=== PATIENT | female | born 1980 | race Caucasian/White ===

== ENCOUNTER 2021-11-02 09:19 | Inpatient (IN) | payer MEDICAID ==
[~2021-11-02] VITALS: Ht 160 cm; Wt 67.1 kg
[2021-11-02 16:05] VITALS: BP 128/70
[2021-11-02] MEDS ORDERED: BISACODYL 10 MG RECTAL RECTAL SUPPOSITORY PR PRN (16:30)
[2021-11-02] MEDS ORDERED: LACTULOSE 20 GM/30 ML SOLUTION UDCUP PO PRN (16:30)
[2021-11-02 16:35] VITALS: BP 128/70
[2021-11-02] MEDS ORDERED: WARFARIN SODIUM 5 MG TABLET PO SCH (17:00)
[2021-11-02 20:00] VITALS: BP 116/70
[2021-11-02] MEDS: SENNA/DOCUSATE SODIUM 8.6-50 MG TABLET PO SCH (21:00)
[2021-11-02] MEDS: DOCUSATE SODIUM 100 MG CAPSULE PO SCH (21:00)
[2021-11-02] MEDS: SODIUM CHLORIDE 1 GM TABLET PO SCH (21:49)
[2021-11-02] MEDS: FAMOTIDINE 20 MG TABLET PO SCH (21:49)
[2021-11-02] MEDS: HYDROXYCHLOROQUINE SULFATE 200 MG TABLET PO SCH (21:50)
[2021-11-02] MEDS: ETHYL ALCOHOL 62% ANTISEPTIC NASAL SANITIZER 0.6 ML AMPUL NASAL SCH (22:02)
[2021-11-03 06:17] LABS: BASOPHILS % (AUTO) 0.4 % (0.0-2.0); EOSINOPHILS % (AUTO) 2.2 % (1.0-6.0); HEMATOCRIT 34.6 % (36-46); HEMOGLOBIN 11.7 g/dL (12.0-16.0); LYMPHOCYTES # (AUTO) 0.8 K/uL (1.0-4.8); LYMPHOCYTES % (AUTO) 17.1 % (22.0-44.0); MEAN CORPUSCULAR HEMOGLOBIN 29.1 pg (26.0-34.0); MEAN CORPUSCULAR HGB CONC 33.9 G/dL (31.0-37.0); MEAN CORPUSCULAR VOLUME 86 fL (80-100); MONOCYTES # (AUTO) 0.4 K/uL (0.1-1.0); MONOCYTES % (AUTO) 8.4 % (2.0-9.0); NEUTROPHILS # (AUTO) 3.5 K/uL (1.8-7.7); NEUTROPHILS % (AUTO) 71.9 % (40.0-70.0); PLATELET COUNT (AUTO) 252 K/uL (150-450); RED BLOOD CELL COUNT(AUTO) 4.03 MIL/uL (4.00-5.20); RED CELL DISTRIBUTION WIDTH 13.8 % (11.5-14.5)
[2021-11-03 06:29] LABS: INR 1.2 (0.9-1.1); PROTHROMBIN TIME 13.1 SEC (9.4-11.6)
[2021-11-03 07:08] LABS: ALANINE AMINOTRANSFERASE 435 U/L (12-78); ALBUMIN 2.7 g/dL (3.4-5.0); ALKALINE PHOSPHATASE 93 U/L (46-116); ANION GAP 4 mmol/L (8-16); ASPARTATE AMINOTRANSFERASE 61 U/L (15-37); BILIRUBIN,TOTAL 0.3 mg/dL (0.1-1.0); CALCIUM, TOTAL 9.2 mg/dL (8.8-10.5); CARBON DIOXIDE 29 mmol/L (22-29); CHLORIDE 104 mmol/L (98-107); CREATININE 0.52 mg/dL (0.60-1.30); GLUCOSE,RANDOM 110 mg/dL (70-110); POTASSIUM 4.7 mmol/L (3.5-5.1); SODIUM SERUM 137 mmol/L (136-145); TOTAL PROTEIN, SERUM 6.6 g/dL (6.4-8.2); UREA NITROGEN, BLOOD 12 mg/dL (7-18)
[2021-11-03 07:10] LABS: GLOMERULAR FILTR. RATE CALC > 60 mL/min (>60)
[2021-11-03 07:45] VITALS: BP 144/75
[2021-11-03] MEDS: ETHYL ALCOHOL 62% ANTISEPTIC NASAL SANITIZER 0.6 ML AMPUL NASAL SCH ×2 (07:56→20:19)
[2021-11-03] MEDS: FLUoxetine HCL 20 MG CAPSULE PO SCH (07:57)
[2021-11-03] MEDS: SENNA/DOCUSATE SODIUM 8.6-50 MG TABLET PO SCH (07:57)
[2021-11-03] MEDS: DOCUSATE SODIUM 100 MG CAPSULE PO SCH ×2 (07:59→20:17)
[2021-11-03] MEDS: FAMOTIDINE 20 MG TABLET PO SCH ×2 (07:59→20:19)
[2021-11-03] MEDS: HYDROXYCHLOROQUINE SULFATE 200 MG TABLET PO SCH ×2 (07:59→20:19)
[2021-11-03] MEDS: LISINOPRIL 20 MG TABLET PO SCH (07:59)
[2021-11-03] MEDS: SODIUM CHLORIDE 1 GM TABLET PO SCH ×2 (07:59→20:19)
[2021-11-03] MEDS: ENOXAPARIN SODIUM 80 MG/0.8 ML PF SYRINGE SQ SCH (11:59)
[2021-11-03 16:22] VITALS: BP 135/72
[2021-11-03] MEDS: WARFARIN SODIUM 5 MG TABLET PO SCH (18:22)
[2021-11-03] MEDS: SENNA 187 MG TABLET PO SCH (20:17)
[2021-11-03 21:03] VITALS: BP 123/75
[2021-11-04] MEDS: ACETAMINOPHEN 325 MG TABLET PO PRN (03:47)
[2021-11-04 07:15] LABS: INR 1.2 (0.9-1.1); PROTHROMBIN TIME 12.7 SEC (9.4-11.6)
[2021-11-04 07:19] LABS: CHOL/HDL RATIO 3.4 (3.9-5.7)
[2021-11-04 07:28] LABS: HEMOGLOBIN A1C 6.2 % (3.8-5.6)
[2021-11-04 08:30] VITALS: BP 126/74
[2021-11-04] MEDS: FAMOTIDINE 20 MG TABLET PO SCH ×2 (08:43→20:17)
[2021-11-04] MEDS: HYDROXYCHLOROQUINE SULFATE 200 MG TABLET PO SCH ×2 (08:43→20:17)
[2021-11-04] MEDS: FLUoxetine HCL 20 MG CAPSULE PO SCH (08:43)
[2021-11-04] MEDS: ETHYL ALCOHOL 62% ANTISEPTIC NASAL SANITIZER 0.6 ML AMPUL NASAL SCH ×2 (08:43→20:18)
[2021-11-04] MEDS: SODIUM CHLORIDE 1 GM TABLET PO SCH ×2 (08:43→20:17)
[2021-11-04] MEDS: LISINOPRIL 20 MG TABLET PO SCH (08:43)
[2021-11-04] MEDS: DOCUSATE SODIUM 100 MG CAPSULE PO SCH ×2 (08:44→20:18)
[2021-11-04] MEDS: ENOXAPARIN SODIUM 80 MG/0.8 ML PF SYRINGE SQ SCH (08:44)
[2021-11-04] MEDS: WARFARIN SODIUM 5 MG TABLET PO SCH (17:23)
[2021-11-04] MEDS: SENNA 187 MG TABLET PO SCH (20:18)
[2021-11-04 20:20] VITALS: BP 112/59
[2021-11-05 07:30] VITALS: BP 126/64
[2021-11-05] MEDS: ETHYL ALCOHOL 62% ANTISEPTIC NASAL SANITIZER 0.6 ML AMPUL NASAL SCH ×2 (08:03→20:35)
[2021-11-05] MEDS: SODIUM CHLORIDE 1 GM TABLET PO SCH ×2 (08:04→20:35)
[2021-11-05] MEDS: FAMOTIDINE 20 MG TABLET PO SCH ×2 (08:04→20:35)
[2021-11-05] MEDS: DOCUSATE SODIUM 100 MG CAPSULE PO SCH ×2 (08:04→20:35)
[2021-11-05] MEDS: FLUoxetine HCL 20 MG CAPSULE PO SCH (08:05)
[2021-11-05] MEDS: LISINOPRIL 20 MG TABLET PO SCH (08:05)
[2021-11-05] MEDS: HYDROXYCHLOROQUINE SULFATE 200 MG TABLET PO SCH ×2 (08:05→20:35)
[2021-11-05 08:23] LABS: INR 1.7 (0.9-1.1); PROTHROMBIN TIME 17.2 SEC (9.4-11.6)
[2021-11-05] MEDS: ENOXAPARIN SODIUM 80 MG/0.8 ML PF SYRINGE SQ SCH (09:28)
[2021-11-05] MEDS: WARFARIN SODIUM 5 MG TABLET PO SCH (16:36)
[2021-11-05 20:28] VITALS: BP 114/57
[2021-11-05] MEDS: SENNA 187 MG TABLET PO SCH (20:35)
[2021-11-06 07:35] LABS: BASOPHILS % (AUTO) 0.4 % (0.0-2.0); EOSINOPHILS % (AUTO) 2.9 % (1.0-6.0); HEMATOCRIT 29.4 % (36-46); HEMOGLOBIN 10.1 g/dL (12.0-16.0); LYMPHOCYTES # (AUTO) 0.9 K/uL (1.0-4.8); LYMPHOCYTES % (AUTO) 21.6 % (22.0-44.0); MEAN CORPUSCULAR HEMOGLOBIN 29.1 pg (26.0-34.0); MEAN CORPUSCULAR HGB CONC 34.3 G/dL (31.0-37.0); MEAN CORPUSCULAR VOLUME 85 fL (80-100); MONOCYTES # (AUTO) 0.4 K/uL (0.1-1.0); MONOCYTES % (AUTO) 10.1 % (2.0-9.0); NEUTROPHILS # (AUTO) 2.6 K/uL (1.8-7.7); PLATELET COUNT (AUTO) 277 K/uL (150-450); RED BLOOD CELL COUNT(AUTO) 3.46 MIL/uL (4.00-5.20); RED CELL DISTRIBUTION WIDTH 13.9 % (11.5-14.5)
[2021-11-06 07:53] LABS: ALANINE AMINOTRANSFERASE 149 U/L (12-78); ALBUMIN 2.7 g/dL (3.4-5.0); ALKALINE PHOSPHATASE 77 U/L (46-116); ANION GAP 7 mmol/L (8-16); ASPARTATE AMINOTRANSFERASE 24 U/L (15-37); BILIRUBIN,TOTAL 0.3 mg/dL (0.1-1.0); CALCIUM, TOTAL 8.9 mg/dL (8.8-10.5); CARBON DIOXIDE 26 mmol/L (22-29); CHLORIDE 105 mmol/L (98-107); CREATININE 0.49 mg/dL (0.60-1.30); GLOMERULAR FILTR. RATE CALC > 60 mL/min (>60); GLUCOSE,RANDOM 101 mg/dL (70-110); POTASSIUM 3.8 mmol/L (3.5-5.1); SODIUM SERUM 138 mmol/L (136-145); UREA NITROGEN, BLOOD 13 mg/dL (7-18)
[2021-11-06 07:55] LABS: INR 2.8 (0.9-1.1); PROTHROMBIN TIME 28.8 SEC (9.4-11.6)
[2021-11-06 08:10] VITALS: BP 122/60
[2021-11-06] MEDS: DOCUSATE SODIUM 100 MG CAPSULE PO SCH ×2 (09:00→20:30)
[2021-11-06] MEDS: ENOXAPARIN SODIUM 80 MG/0.8 ML PF SYRINGE SQ SCH (09:00)
[2021-11-06] MEDS: ETHYL ALCOHOL 62% ANTISEPTIC NASAL SANITIZER 0.6 ML AMPUL NASAL SCH ×2 (09:03→20:35)
[2021-11-06] MEDS: FAMOTIDINE 20 MG TABLET PO SCH ×2 (09:04→20:33)
[2021-11-06] MEDS: SODIUM CHLORIDE 1 GM TABLET PO SCH ×2 (09:04→20:33)
[2021-11-06] MEDS: FLUoxetine HCL 20 MG CAPSULE PO SCH (09:04)
[2021-11-06] MEDS: HYDROXYCHLOROQUINE SULFATE 200 MG TABLET PO SCH ×2 (09:05→20:33)
[2021-11-06] MEDS: LISINOPRIL 20 MG TABLET PO SCH (09:05)
[2021-11-06] MEDS: WARFARIN SODIUM 5 MG TABLET PO SCH (16:29)
[2021-11-06 20:00] VITALS: BP 115/70
[2021-11-06] MEDS: SENNA 187 MG TABLET PO SCH (20:36)
[2021-11-07] MEDS ORDERED: HYDR200T38 PO (00:51)
[2021-11-07] MEDS ORDERED: DOCU-385 PO (00:51)
[2021-11-07] MEDS ORDERED: FLUO20CA36 PO (00:51)
[2021-11-07] MEDS ORDERED: LISI-894 PO (00:51)
[2021-11-07] MEDS ORDERED: NACL1 PO (00:51)
[2021-11-07] MEDS ORDERED: WARF5TAB40 PO (00:51)
[2021-11-07] MEDS ORDERED: FAMO20 PO (00:51)
[2021-11-07] MEDS: ACETAMINOPHEN 325 MG TABLET PO PRN (01:12)
[2021-11-07 08:05] VITALS: BP 124/64
[2021-11-07] MEDS: ETHYL ALCOHOL 62% ANTISEPTIC NASAL SANITIZER 0.6 ML AMPUL NASAL SCH ×2 (08:43→20:23)
[2021-11-07] MEDS: FLUoxetine HCL 20 MG CAPSULE PO SCH (08:44)
[2021-11-07] MEDS: LISINOPRIL 20 MG TABLET PO SCH (08:44)
[2021-11-07] MEDS: FAMOTIDINE 20 MG TABLET PO SCH ×2 (08:44→20:23)
[2021-11-07] MEDS: HYDROXYCHLOROQUINE SULFATE 200 MG TABLET PO SCH ×2 (08:44→20:23)
[2021-11-07] MEDS: DOCUSATE SODIUM 100 MG CAPSULE PO SCH ×2 (08:44→20:19)
[2021-11-07] MEDS: SODIUM CHLORIDE 1 GM TABLET PO SCH ×2 (08:44→20:23)
[2021-11-07 10:54] LABS: INR 2.1 (0.9-1.1); PROTHROMBIN TIME 21.5 SEC (9.4-11.6)
[2021-11-07] MEDS: WARFARIN SODIUM 5 MG TABLET PO SCH (16:14)
[2021-11-07 18:00] VITALS: BP 132/74
[2021-11-07 20:18] VITALS: BP 117/72
[2021-11-07] MEDS: SENNA 187 MG TABLET PO SCH (20:20)
[2021-11-08] MEDS: ACETAMINOPHEN 325 MG TABLET PO PRN (00:16)
[2021-11-08 08:01] VITALS: BP 129/76
[2021-11-08] MEDS: FLUoxetine HCL 20 MG CAPSULE PO SCH (08:08)
[2021-11-08] MEDS: FAMOTIDINE 20 MG TABLET PO SCH ×2 (08:08→20:48)
[2021-11-08] MEDS: HYDROXYCHLOROQUINE SULFATE 200 MG TABLET PO SCH ×2 (08:08→20:48)
[2021-11-08] MEDS: ETHYL ALCOHOL 62% ANTISEPTIC NASAL SANITIZER 0.6 ML AMPUL NASAL SCH ×2 (08:09→20:48)
[2021-11-08] MEDS: DOCUSATE SODIUM 100 MG CAPSULE PO SCH ×2 (08:11→20:45)
[2021-11-08] MEDS: LISINOPRIL 20 MG TABLET PO SCH (08:12)
[2021-11-08] MEDS: SODIUM CHLORIDE 1 GM TABLET PO SCH ×2 (08:12→20:48)
[2021-11-08 10:11] LABS: INR 2.2 (0.9-1.1); PROTHROMBIN TIME 22.8 SEC (9.4-11.6)
[2021-11-08] MEDS: WARFARIN SODIUM 5 MG TABLET PO SCH (16:29)
[2021-11-08] MEDS: SENNA 187 MG TABLET PO SCH (20:45)
[2021-11-08 21:06] VITALS: BP 118/72
[2021-11-09 07:08] LABS: BASOPHILS % (AUTO) 0.9 % (0.0-2.0); EOSINOPHILS % (AUTO) 1.9 % (1.0-6.0); HEMATOCRIT 32.9 % (36-46); HEMOGLOBIN 11.1 g/dL (12.0-16.0); LYMPHOCYTES # (AUTO) 0.8 K/uL (1.0-4.8); LYMPHOCYTES % (AUTO) 21.1 % (22.0-44.0); MEAN CORPUSCULAR HEMOGLOBIN 28.9 pg (26.0-34.0); MEAN CORPUSCULAR HGB CONC 33.8 G/dL (31.0-37.0); MEAN CORPUSCULAR VOLUME 86 fL (80-100); MONOCYTES # (AUTO) 0.3 K/uL (0.1-1.0); MONOCYTES % (AUTO) 8.2 % (2.0-9.0); NEUTROPHILS # (AUTO) 2.5 K/uL (1.8-7.7); NEUTROPHILS % (AUTO) 67.9 % (40.0-70.0); PLATELET COUNT (AUTO) 218 K/uL (150-450); RED BLOOD CELL COUNT(AUTO) 3.85 MIL/uL (4.00-5.20); RED CELL DISTRIBUTION WIDTH 14.1 % (11.5-14.5)
[2021-11-09 07:23] LABS: INR 2.4 (0.9-1.1); PROTHROMBIN TIME 24.3 SEC (9.4-11.6)
[2021-11-09 08:10] VITALS: BP 137/73
[2021-11-09] MEDS: HYDROXYCHLOROQUINE SULFATE 200 MG TABLET PO SCH ×2 (08:35→20:10)
[2021-11-09] MEDS: LISINOPRIL 20 MG TABLET PO SCH (08:35)
[2021-11-09] MEDS: FLUoxetine HCL 20 MG CAPSULE PO SCH (08:35)
[2021-11-09] MEDS: SODIUM CHLORIDE 1 GM TABLET PO SCH ×2 (08:35→20:10)
[2021-11-09] MEDS: FAMOTIDINE 20 MG TABLET PO SCH ×2 (08:35→21:31)
[2021-11-09] MEDS: DOCUSATE SODIUM 100 MG CAPSULE PO SCH ×2 (08:38→21:00)
[2021-11-09] MEDS: ETHYL ALCOHOL 62% ANTISEPTIC NASAL SANITIZER 0.6 ML AMPUL NASAL SCH ×2 (08:39→20:09)
[2021-11-09] MEDS: ATENOLOL 25 MG TABLET PO SCH (11:45)
[2021-11-09] MEDS: WARFARIN SODIUM 5 MG TABLET PO SCH (16:24)
[2021-11-09 20:45] VITALS: BP 122/65
[2021-11-09] MEDS: SENNA 187 MG TABLET PO SCH (21:00)
[2021-11-10] MEDS: ACETAMINOPHEN 325 MG TABLET PO PRN (00:47)
[2021-11-10 08:25] VITALS: BP 110/70
[2021-11-10] MEDS: DOCUSATE SODIUM 100 MG CAPSULE PO SCH ×2 (09:00→20:32)
[2021-11-10] MEDS: LISINOPRIL 20 MG TABLET PO SCH (09:41)
[2021-11-10] MEDS: ETHYL ALCOHOL 62% ANTISEPTIC NASAL SANITIZER 0.6 ML AMPUL NASAL SCH ×2 (09:41→20:38)
[2021-11-10] MEDS: HYDROXYCHLOROQUINE SULFATE 200 MG TABLET PO SCH ×2 (09:41→20:37)
[2021-11-10] MEDS: SODIUM CHLORIDE 1 GM TABLET PO SCH ×2 (09:41→20:37)
[2021-11-10] MEDS: ATENOLOL 25 MG TABLET PO SCH (09:41)
[2021-11-10] MEDS: FLUoxetine HCL 20 MG CAPSULE PO SCH (09:41)
[2021-11-10] MEDS: FAMOTIDINE 20 MG TABLET PO SCH ×2 (09:41→20:37)
[2021-11-10 11:03] LABS: INR 2.2 (0.9-1.1); PROTHROMBIN TIME 22.8 SEC (9.4-11.6)
[2021-11-10] MEDS: WARFARIN SODIUM 5 MG TABLET PO SCH (17:24)
[2021-11-10 20:20] VITALS: BP 124/69
[2021-11-10] MEDS: SENNA 187 MG TABLET PO SCH (20:32)
[2021-11-11 08:00] VITALS: BP 115/73
[2021-11-11] MEDS: DOCUSATE SODIUM 100 MG CAPSULE PO SCH ×2 (09:00→20:54)
[2021-11-11] MEDS: FAMOTIDINE 20 MG TABLET PO SCH ×2 (09:15→20:56)
[2021-11-11] MEDS: ATENOLOL 25 MG TABLET PO SCH (09:15)
[2021-11-11] MEDS: SODIUM CHLORIDE 1 GM TABLET PO SCH ×2 (09:16→20:54)
[2021-11-11] MEDS: LISINOPRIL 20 MG TABLET PO SCH (09:16)
[2021-11-11] MEDS: FLUoxetine HCL 20 MG CAPSULE PO SCH (09:16)
[2021-11-11] MEDS: HYDROXYCHLOROQUINE SULFATE 200 MG TABLET PO SCH ×2 (09:16→20:54)
[2021-11-11] MEDS: ETHYL ALCOHOL 62% ANTISEPTIC NASAL SANITIZER 0.6 ML AMPUL NASAL SCH ×2 (09:17→20:53)
[2021-11-11 09:37] LABS: INR 2.5 (0.9-1.1)
[2021-11-11] MEDS: WARFARIN SODIUM 5 MG TABLET PO SCH (17:23)
[2021-11-11 20:20] VITALS: BP 112/72
[2021-11-11] MEDS: SENNA 187 MG TABLET PO SCH (20:54)
[2021-11-12 08:05] VITALS: BP 129/62
[2021-11-12] MEDS: SODIUM CHLORIDE 1 GM TABLET PO SCH ×2 (09:14→20:40)
[2021-11-12] MEDS: LISINOPRIL 20 MG TABLET PO SCH (09:14)
[2021-11-12] MEDS: ETHYL ALCOHOL 62% ANTISEPTIC NASAL SANITIZER 0.6 ML AMPUL NASAL SCH ×2 (09:14→20:40)
[2021-11-12] MEDS: FLUoxetine HCL 20 MG CAPSULE PO SCH (09:15)
[2021-11-12] MEDS: ATENOLOL 25 MG TABLET PO SCH (09:15)
[2021-11-12] MEDS: HYDROXYCHLOROQUINE SULFATE 200 MG TABLET PO SCH ×2 (09:16→20:40)
[2021-11-12] MEDS: FAMOTIDINE 20 MG TABLET PO SCH ×2 (09:16→20:40)
[2021-11-12] MEDS: WARFARIN SODIUM 5 MG TABLET PO SCH (17:54)
[2021-11-12 20:00] VITALS: BP 118/65
[2021-11-13] MEDS: SODIUM CHLORIDE 1 GM TABLET PO SCH ×2 (08:01→20:26)
[2021-11-13] MEDS: ETHYL ALCOHOL 62% ANTISEPTIC NASAL SANITIZER 0.6 ML AMPUL NASAL SCH ×2 (08:01→20:26)
[2021-11-13] MEDS: FAMOTIDINE 20 MG TABLET PO SCH ×2 (08:01→20:26)
[2021-11-13] MEDS: HYDROXYCHLOROQUINE SULFATE 200 MG TABLET PO SCH ×2 (08:01→20:26)
[2021-11-13] MEDS: LISINOPRIL 20 MG TABLET PO SCH (08:02)
[2021-11-13] MEDS: FLUoxetine HCL 20 MG CAPSULE PO SCH (08:02)
[2021-11-13] MEDS: ATENOLOL 25 MG TABLET PO SCH (08:02)
[2021-11-13 08:05] VITALS: BP 125/73
[2021-11-13 10:00] LABS: INR 2.4 (0.9-1.1); PROTHROMBIN TIME 24.9 SEC (9.4-11.6)
[2021-11-13] MEDS: WARFARIN SODIUM 5 MG TABLET PO SCH (17:45)
[2021-11-13 20:20] VITALS: BP 112/54
[2021-11-14 08:20] VITALS: BP 123/60
[2021-11-14] MEDS: SODIUM CHLORIDE 1 GM TABLET PO SCH ×2 (08:41→20:00)
[2021-11-14] MEDS: ETHYL ALCOHOL 62% ANTISEPTIC NASAL SANITIZER 0.6 ML AMPUL NASAL SCH ×2 (08:41→20:00)
[2021-11-14] MEDS: HYDROXYCHLOROQUINE SULFATE 200 MG TABLET PO SCH ×2 (08:41→20:00)
[2021-11-14] MEDS: FAMOTIDINE 20 MG TABLET PO SCH ×2 (08:41→20:00)
[2021-11-14] MEDS: FLUoxetine HCL 20 MG CAPSULE PO SCH (08:41)
[2021-11-14] MEDS: LISINOPRIL 20 MG TABLET PO SCH (08:42)
[2021-11-14] MEDS: ATENOLOL 25 MG TABLET PO SCH (08:42)
[2021-11-14] MEDS: WARFARIN SODIUM 5 MG TABLET PO SCH (17:03)
[2021-11-14 20:15] VITALS: BP 113/63
[2021-11-15 07:06] LABS: BASOPHILS % (AUTO) 0.7 % (0.0-2.0); EOSINOPHILS % (AUTO) 1.2 % (1.0-6.0); HEMATOCRIT 30.1 % (36-46); HEMOGLOBIN 10.2 g/dL (12.0-16.0); LYMPHOCYTES # (AUTO) 0.8 K/uL (1.0-4.8); LYMPHOCYTES % (AUTO) 20.5 % (22.0-44.0); MEAN CORPUSCULAR HEMOGLOBIN 29.1 pg (26.0-34.0); MEAN CORPUSCULAR HGB CONC 34.1 G/dL (31.0-37.0); MEAN CORPUSCULAR VOLUME 86 fL (80-100); MONOCYTES # (AUTO) 0.4 K/uL (0.1-1.0); MONOCYTES % (AUTO) 9.5 % (2.0-9.0); NEUTROPHILS # (AUTO) 2.5 K/uL (1.8-7.7); NEUTROPHILS % (AUTO) 68.1 % (40.0-70.0); PLATELET COUNT (AUTO) 239 K/uL (150-450); RED BLOOD CELL COUNT(AUTO) 3.51 MIL/uL (4.00-5.20); RED CELL DISTRIBUTION WIDTH 14.5 % (11.5-14.5)
[2021-11-15 07:17] LABS: ANION GAP 9 mmol/L (8-16); CARBON DIOXIDE 27 mmol/L (22-29); CHLORIDE 107 mmol/L (98-107); CREATININE 0.55 mg/dL (0.60-1.30); GLUCOSE,RANDOM 101 mg/dL (70-110); POTASSIUM 3.6 mmol/L (3.5-5.1); SODIUM SERUM 143 mmol/L (136-145); UREA NITROGEN, BLOOD 7 mg/dL (7-18)
[2021-11-15 07:19] LABS: GLOMERULAR FILTR. RATE CALC > 60 mL/min (>60)
[2021-11-15 07:23] LABS: INR 2.6 (0.9-1.1); PROTHROMBIN TIME 26.1 SEC (9.4-11.6)
[2021-11-15 08:16] VITALS: BP 130/72
[2021-11-15] MEDS: METOCLOPRAMIDE HCL 5 MG TABLET PO PRN (08:16)
[2021-11-15] MEDS: FLUoxetine HCL 20 MG CAPSULE PO SCH (08:17)
[2021-11-15] MEDS: FAMOTIDINE 20 MG TABLET PO SCH ×2 (08:17→20:23)
[2021-11-15] MEDS: SODIUM CHLORIDE 1 GM TABLET PO SCH ×2 (08:17→20:23)
[2021-11-15] MEDS: HYDROXYCHLOROQUINE SULFATE 200 MG TABLET PO SCH ×2 (08:17→20:23)
[2021-11-15] MEDS: LISINOPRIL 20 MG TABLET PO SCH (08:17)
[2021-11-15] MEDS: ETHYL ALCOHOL 62% ANTISEPTIC NASAL SANITIZER 0.6 ML AMPUL NASAL SCH ×2 (08:18→20:23)
[2021-11-15] MEDS: ATENOLOL 25 MG TABLET PO SCH (08:18)
[2021-11-15] MEDS: WARFARIN SODIUM 5 MG TABLET PO SCH (16:39)
[2021-11-15 20:03] VITALS: BP 128/75
[2021-11-15] MEDS ORDERED: ATEN-73 PO (22:58)
[2021-11-16] MEDS: METOCLOPRAMIDE HCL 5 MG TABLET PO PRN (08:10)
[2021-11-16] MEDS: LISINOPRIL 20 MG TABLET PO SCH (08:11)
[2021-11-16] MEDS: FLUoxetine HCL 20 MG CAPSULE PO SCH (08:11)
[2021-11-16] MEDS: SODIUM CHLORIDE 1 GM TABLET PO SCH ×2 (08:11→20:54)
[2021-11-16] MEDS: FAMOTIDINE 20 MG TABLET PO SCH ×2 (08:12→20:54)
[2021-11-16] MEDS: ATENOLOL 25 MG TABLET PO SCH (08:12)
[2021-11-16] MEDS: HYDROXYCHLOROQUINE SULFATE 200 MG TABLET PO SCH ×2 (08:12→20:54)
[2021-11-16] MEDS: ETHYL ALCOHOL 62% ANTISEPTIC NASAL SANITIZER 0.6 ML AMPUL NASAL SCH ×2 (08:12→20:54)
[2021-11-16 08:45] VITALS: BP 124/71
[2021-11-16] MEDS: WARFARIN SODIUM 5 MG TABLET PO SCH (16:31)
[2021-11-16 21:00] VITALS: BP 113/77
[2021-11-17 08:05] VITALS: BP 136/72
[2021-11-17] MEDS: FLUoxetine HCL 20 MG CAPSULE PO SCH (08:06)
[2021-11-17] MEDS: LISINOPRIL 20 MG TABLET PO SCH (08:06)
[2021-11-17] MEDS: ATENOLOL 25 MG TABLET PO SCH (08:06)
[2021-11-17] MEDS: ETHYL ALCOHOL 62% ANTISEPTIC NASAL SANITIZER 0.6 ML AMPUL NASAL SCH ×2 (08:06→20:11)
[2021-11-17] MEDS: FAMOTIDINE 20 MG TABLET PO SCH ×2 (08:07→20:11)
[2021-11-17] MEDS: SODIUM CHLORIDE 1 GM TABLET PO SCH (08:07)
[2021-11-17] MEDS: HYDROXYCHLOROQUINE SULFATE 200 MG TABLET PO SCH ×2 (08:07→20:11)
[2021-11-17 09:41] LABS: INR 2.8 (0.9-1.1); PROTHROMBIN TIME 28.9 SEC (9.4-11.6)
[2021-11-17] MEDS: WARFARIN SODIUM 5 MG TABLET PO SCH (17:12)
[2021-11-17 20:05] VITALS: BP 115/75
[2021-11-18 08:05] VITALS: BP 135/64
[2021-11-18] MEDS: FAMOTIDINE 20 MG TABLET PO SCH ×2 (08:18→20:16)
[2021-11-18] MEDS: ATENOLOL 25 MG TABLET PO SCH (08:19)
[2021-11-18] MEDS: LISINOPRIL 20 MG TABLET PO SCH (08:19)
[2021-11-18] MEDS: ETHYL ALCOHOL 62% ANTISEPTIC NASAL SANITIZER 0.6 ML AMPUL NASAL SCH ×2 (08:19→20:17)
[2021-11-18] MEDS: FLUoxetine HCL 20 MG CAPSULE PO SCH (08:19)
[2021-11-18] MEDS: HYDROXYCHLOROQUINE SULFATE 200 MG TABLET PO SCH ×2 (08:19→20:17)
[2021-11-18] MEDS: WARFARIN SODIUM 5 MG TABLET PO SCH (17:31)
[2021-11-18 20:19] VITALS: BP 128/65
[2021-11-19] MEDS: FLUoxetine HCL 20 MG CAPSULE PO SCH (07:21)
[2021-11-19] MEDS: LISINOPRIL 20 MG TABLET PO SCH (07:21)
[2021-11-19] MEDS: ETHYL ALCOHOL 62% ANTISEPTIC NASAL SANITIZER 0.6 ML AMPUL NASAL SCH ×2 (07:21→20:41)
[2021-11-19] MEDS: FAMOTIDINE 20 MG TABLET PO SCH ×2 (07:22→20:41)
[2021-11-19] MEDS: HYDROXYCHLOROQUINE SULFATE 200 MG TABLET PO SCH ×2 (07:22→20:41)
[2021-11-19] MEDS: ATENOLOL 25 MG TABLET PO SCH (07:22)
[2021-11-19 08:48] VITALS: BP 138/74
[2021-11-19 09:52] LABS: INR 2.7 (0.9-1.1); PROTHROMBIN TIME 27.6 SEC (9.4-11.6)
[2021-11-19] MEDS: WARFARIN SODIUM 5 MG TABLET PO SCH (17:23)
[2021-11-19 20:30] VITALS: BP 112/63
[2021-11-20 08:10] VITALS: BP 121/83
[2021-11-20] MEDS: ETHYL ALCOHOL 62% ANTISEPTIC NASAL SANITIZER 0.6 ML AMPUL NASAL SCH ×2 (09:30→21:01)
[2021-11-20] MEDS: LISINOPRIL 20 MG TABLET PO SCH (09:30)
[2021-11-20] MEDS: HYDROXYCHLOROQUINE SULFATE 200 MG TABLET PO SCH ×2 (09:30→21:01)
[2021-11-20] MEDS: ATENOLOL 25 MG TABLET PO SCH (09:30)
[2021-11-20] MEDS: FLUoxetine HCL 20 MG CAPSULE PO SCH (09:30)
[2021-11-20] MEDS: FAMOTIDINE 20 MG TABLET PO SCH ×2 (09:30→21:01)
[2021-11-20] MEDS ORDERED: HYDR200T38 PO (11:37)
[2021-11-20] MEDS ORDERED: LISI-894 PO (11:37)
[2021-11-20] MEDS ORDERED: WARF5TAB40 PO (11:37)
[2021-11-20] MEDS ORDERED: ATEN-73 PO (11:37)
[2021-11-20] MEDS ORDERED: PROZ20 PO (11:37)
[2021-11-20] MEDS ORDERED: FAMO20 PO (11:37)
[2021-11-20] MEDS: WARFARIN SODIUM 5 MG TABLET PO SCH (16:56)
[2021-11-20 20:30] VITALS: BP 149/89
[2021-11-21] MEDS: HYDROXYCHLOROQUINE SULFATE 200 MG TABLET PO SCH ×2 (07:26→20:42)
[2021-11-21] MEDS: ETHYL ALCOHOL 62% ANTISEPTIC NASAL SANITIZER 0.6 ML AMPUL NASAL SCH ×2 (07:26→20:41)
[2021-11-21] MEDS: FAMOTIDINE 20 MG TABLET PO SCH ×2 (07:26→20:42)
[2021-11-21] MEDS: FLUoxetine HCL 20 MG CAPSULE PO SCH (07:26)
[2021-11-21] MEDS: ATENOLOL 25 MG TABLET PO SCH (07:26)
[2021-11-21] MEDS: LISINOPRIL 20 MG TABLET PO SCH (07:27)
[2021-11-21 09:00] VITALS: BP 112/68
[2021-11-21] MEDS: WARFARIN SODIUM 5 MG TABLET PO SCH (17:24)
[2021-11-21 20:13] VITALS: BP 112/69
[2021-11-22 08:01] VITALS: BP 120/75
[2021-11-22] MEDS: LISINOPRIL 20 MG TABLET PO SCH (08:56)
[2021-11-22] MEDS: HYDROXYCHLOROQUINE SULFATE 200 MG TABLET PO SCH (08:56)
[2021-11-22] MEDS: FLUoxetine HCL 20 MG CAPSULE PO SCH (08:56)
[2021-11-22] MEDS: FAMOTIDINE 20 MG TABLET PO SCH (08:56)
[2021-11-22] MEDS: ATENOLOL 25 MG TABLET PO SCH (08:57)
[2021-11-22] MEDS: ETHYL ALCOHOL 62% ANTISEPTIC NASAL SANITIZER 0.6 ML AMPUL NASAL SCH (08:59)
[2021-11-22 09:37] LABS: INR 2.3 (0.9-1.1); PROTHROMBIN TIME 23.9 SEC (9.4-11.6)
== END 2021-11-22 13:40 | disposition home or self-care (01) | DRG 58 ==
LOC: 2WR 13:25
PROVIDERS: ADMIT Physical Medicine & Rehabilitation; ATTEND Physical Medicine & Rehabilitation
DX: G81.91 Hemiplegia, unspecified affecting right dominant side (principal); G08 Intracranial and intraspinal phlebitis and thrombophlebitis; I61.1 Nontraumatic intracerebral hemorrhage in hemisphere, cortical; E46 Unspecified protein-calorie malnutrition; I42.1 Obstructive hypertrophic cardiomyopathy; E87.1 Hypo-osmolality and hyponatremia; M32.9 Systemic lupus erythematosus, unspecified; I10 Essential (primary) hypertension; K21.9 Gastro-esophageal reflux disease without esophagitis; R73.03 Prediabetes; R13.10 Dysphagia, unspecified; R47.01 Aphasia; R74.01 Elevation of levels of liver transaminase levels; Z90.710 Acquired absence of both cervix and uterus; Z68.26 Body mass index [BMI] 26.0-26.9, adult
CPT/HCPCS: 80048; 80053; 80061; 83036; 85025; 85610; 87081; 97112; 97116; 97150; 97163; 97530; 97535; 99366; J1650

== ENCOUNTER → 2021-11-29 | Outpatient (CLI) | payer MEDICAID ==
[~2021-11-29] MED LIST: ATEN-73 PO; FAMO20 PO; FLUO20CA36 PO; HYDR200T38 PO; LISI-894 PO; PROZ20 PO; WARF5TAB40 PO
[2021-11-29 13:09] LABS: INR 1.9 (0.9-1.1); PROTHROMBIN TIME 19.8 SEC (9.4-11.6)
== END | disposition home or self-care (01) ==
LOC: LABMN 12:36
PROVIDERS: ATTEND Physical Medicine & Rehabilitation
DX: R79.9 Abnormal finding of blood chemistry, unspecified (principal)
CPT/HCPCS: 85610